=== PATIENT | male | born 1985 | race Caucasian/White ===

== ENCOUNTER 2020-08-01 06:46 | Emergency (ER) | payer SELFPAY ==
--- NOTE | ~2020-08-01 | CT_ITS ---
EXAMINATION: CT abdomen pelvis w con DATE: 08/01/2020 08:13 INDICATION: Right upper quadrant abdominal pain] TECHNIQUE: Computed tomography (CT) of the abdomen and pelvis was performed with 100 cc Omnipaque 350 intravenous contrast. Automated exposure control and iterative reconstruction technique were employe d. Exam dose: 429.18 mGy-cm total exam DLP. COMPARISON: None. FINDINGS: The lung bases are clear. Normal heart size. No pericardial or pleural effusion. The liver, gallbladder, bile ducts, spleen, pancreas, pancreatic duct and adrenal glands appear peter l. (Ultrasound is more sensitive for detection of gallbladder pathology.) No renal space occupying mass lesion or urinary tract calculus or hydroureteronephrosis. Normal caliber of the abdominal aorta. No intraperitoneal or retroperitoneal or pelvic mass lesion or adenopathy or ascites. No bowel obstruction, bowel wall thickening, pneumatosis or intraperitoneal free air. There is mild retrolisthesis at L4-5. Bilateral L5 pars interarticularis defects with grade 1 anterolisthesis at L5-S1. IMPRESSION: Bilateral L5 pars interarticularis defects with grade 1 anterolisthesis at L5-S1 Reviewed, dictated and finalized at [facility]. Reviewed, dictated and finalized at [facility]. [employer] PROJECT ENGINEER IMPRESSION: Bilateral L5 pars interarticularis defects with grade 1 anterolist hesis at L5-S1
[2020-08-01 06:50] VITALS: BP 125/79; PULSE 99; RESP 20; TEMP 36.3; O2SAT 100
[2020-08-01 07:20] LABS: Add Urine Microscopic? NO; Appearance Urine Clear (Clear); Bilirubin Urine Negative (Negative); Blood Urine Negative (Negative); Color Urine Colorless (Yellow); Glucose Urine UA Negative (Negative); Ketones Urine Negative (Negative); Leukocyte Esterase Ur Negative LEU/UL (Negative); Mucus Urine Rare /lpf; Nitrate Urine Negative (Negative); Protein Urine Negative (Negative); Specific Grav Ur 1.005 (1.001-1.035); Urobilinogen Urine Negative mg/dL (<2.0)
[2020-08-01 07:23] LABS: Basophils Absolute Auto 0.1 K/mm3 (0.0-0.1); Basophils Percent Auto 0.9 % (0.2-1.2); Eosinophils Absolute Auto 0.2 K/mm3 (0-0.3); Eosinophils Percent Auto 2.2 % (0-4.4); Hematocrit 42.3 % (42.0-52.0); Hemoglobin 14.5 g/dL (14.0-18.0); Immature Granulocyte Absolute 0.03 K/mm3 (0.00-0.031); Immature Granulocyte Percent A 0.3 % (0-0.5); Lymphocytes Absolute Auto 1.65 K/mm3 (0.9-3.2); Lymphocytes Percent Auto 17.8 % (18.3-44.2); Mean Corpuscular HGB Conc 34.3 g/dl (32-36); Mean Corpuscular Hemoglobin 28.9 pg (26-34); Mean Corpuscular Volume 84.3 fl (80-100); Mean Platelet Volume 10.2 fl (7.4-10.4); Monocytes Absolute Auto 0.5 K/mm3 (0.1-0.6); Monocytes Percent Auto 5.8 % (2.6-8.5); Neutrophils Absolute Auto 6.8 K/mm3 (1.3-6.7); Platelet Count Result 274 k/mm3 (150-375); Red Blood Count 5.02 M/mm3 (4.6-6.20); Red Cell Distribution Width 12.9 % (11.5-14.5); White Blood Count 9.3 K/mm3 (4.5-10.0)
[2020-08-01 07:42] LABS: Alanine Aminotransferase 17 U/L (4-50); Albumin Level 4.8 g/dL (3.5-5.1); Alkaline Phosphatase 51 U/L (38-126); Anion Gap 10 mmol/L (8-16); Aspartate Amino Transferase 33 U/L (17-59); Bilirubin,Total 0.5 mg/dL (0.2-1.3); Blood Urea Nitrogen 13 mg/dL (9-20); Calcium 9.7 mg/dL (8.4-10.2); Carbon Dioxide 26 mmol/L (22-30); Chloride 100 mmol/L (98-107); Estimated CRCL calculation 110 ml/min; Estimated Glomerular Filt Rate > 60; Glucose 119 mg/dL (75-110); Lipase 64 U/L (23-300); Potassium 3.8 mmol/L (3.4-5.0); Sodium 136 mmol/L (137-145)
[2020-08-01] MEDS: MORPHINE SULFATE (*CRX) 4 MG/ML INJ IV PUSH (07:49)
[2020-08-01] MEDS: ONDANSETRON INJ 4 MG/2 ML VIAL IV PUSH (07:49)
[2020-08-01] MEDS: SODIUM CHLORIDE 0.9% IV 1,000 ML 999 ML IV CONT (07:50)
--- NOTE | 2020-08-01 08:26 | ED.ABDPAIN ---
HPI - Abdominal Pain General Chief Complaint: Abdominal Pain Stated Complaint: R upper ABD pain Time Seen by Provider: 08/01/20 07:29 Source: patient Mode of arrival: ambulatory Limitations: no limitations History of Present Illness HPI narrative: 34 years old white male complaining of right abdomen mainly right upper quadrant pain for the last 1 to 2 years. More noticeable in the last 2 to 3 weeks. Patient denies any fever, chills, nausea, vomiting, triggering factors or relieving factors. Patient also denies any trouble urinating or defecating. In the last 4 days patient been feeling tingling numbness and burning sensation of the forearms and hands, of the lower legs and feet bilaterally. Patient reported history of chronic anxiety and distress. Patient denies alcohol intake or marijuana use. He chews Related Data Allergies Allergy/AdvReac Type Severity Reaction Status Date / Time No Known Allergies Allergy Mild Verified 08/01/20 06:53 Review of Systems Review of Systems: Narrative: CONSTITUTIONAL: Denies fever, chills, or sweats. EYES: Denies visual changes, redness, or discharge. ENT: Denies rhinorrhea, congestion, sore throat, or otalgia. CARDIOVASCULAR: Denies chest pain, palpitations, or edema. RESPIRATORY: Denies cough or dyspnea. GASTROINTESTINAL: Right upper quadrant pain GENITOURINARY: Denies dysuria or hematuria. SKIN: Denies rash or itching. MUSCULOSKELETAL: Denies back pain, joint pain, or myalgia. NEUROLOGIC: Denies headache, numbness, or weakness. PSYCHIATRIC: Denies anxiety or depression. [facility] Social History Social History Gender identity (if verbalized by the patient): Male Exam Narrative: Exam Narrative: General appearance: Well-developed, well-nourished Skin: Normal color Head: Normocephalic, nontraumatic Eyes: Clear conjunctiva ENT: Oropharynx normal, ears normal, nose normal Neck: Supple, nontender Chest and respiratory: Airway patent, no respiratory distress, no accessory muscle use Heart: Regular rate/rhythm Abdomen: Soft, mild right upper outer quadrant tenderness, no guarding or rebound, no organomegaly, quiet bowel sounds Vascular: Normal peripheral pulses, normal capillary refill. 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 A copy of the CAT scan report was given to the patient prior to discharge and was notified about the abnormality in the CAT scan which could be has something to do with his abdominal pain. Patient was advised to follow-up with Dr. Foley for further evaluation Date: 08/01/20 Time: 08:53 Vital Signs Vital signs: Vital Signs Temperature 36.3 C L 08/01/20 06:50 Pulse Rate 99 08/01/20 06:50 Respiratory Rate 20 08/01/20 06:50 Blood Pressure 125/79 08/01/20 06:50 Pulse Oximetry 100 08/01/20 06:50 Temperature 36.3 C L 08/01/20 06:50 Pulse Rate 99 08/01/20 06:50 Respiratory Rate 20 08/01/20 06:50 Blood Pressure 125/79 08/01/20 06:50 Pulse Oximetry 100 08/01/20 06:50 MDM - Abdominal Pain MDM Narrative Medical decision making narrative: Right upper quadrant pain for 1 to 2 years. Make the suspicious of anything serious is less likely. Tingling and numbness of the hands and feet is more likely related to stress and anxiety. Labs, CT abdomen and pelvis with IV contrast ordered. Further plan to follow Differential Diagnosis Differentia
[2020-08-01 09:17] VITALS: BP 128/88; PULSE 85; RESP 18; O2SAT 98
== END 2020-08-01 09:18 | disposition home or self-care (01) ==
PROVIDERS: Emergency Medicine; Emergency Provider Emergency Medicine
DX: R10.11 Right upper quadrant pain (principal); R20.2 Paresthesia of skin
CPT/HCPCS: 36415; 74177; 80053; 81003; 83690; 85025; 96361; 96374; 96375; 99284; J2270; J2405; J7030; Q9967

== ENCOUNTER 2020-12-03 10:52 | Emergency (ER) | payer MEDICAID, SELFPAY ==
--- NOTE | ~2020-12-03 | XR_ITS ---
EXAMINATION: XR chest 2V 12/03/2020 11:09 INDICATION: Chest pain PROCEDURE: 2 view chest COMPARISON: 05/15/2016 FINDINGS: The lungs are clear. The cardiomediastinal silhouette is within normal limits. There are no pleural effusions. There is no pneumothorax suspected. There is pectus carinatum. IMPRESSION: 1: NO ACUTE CARDIOPULMONARY DISEASE. Reviewed, dictated and finalized at [facility].
--- NOTE | ~2020-12-03 | US_ITS ---
EXAMINATION: US right upper quadrant EXAM DATE: 12/03/2020 12:32 INDICATION: Right upper quadrant pain. TECHNIQUE: Multiple grayscale and Doppler images of the abdomen right upper quadrant were obtained (b y a technologist who performed the scan) and subsequently reviewed. There is no prior study for julissa willingham. FINDINGS: The pancreatic head and body are normal in appearance. The pancreatic tail is not visualized. The l iver has normal echogenicity and contour. There are no focal liver lesions identified. There is no evidence of intrahepatic biliary duct dilation. Portal venous flow was seen in the hepatopedal, nor mal direction and has normal Doppler waveform. No right-sided hydronephrosis. Common bile duct measures 3-4 mm, which is normal. The gallbladder wall is normal in thickness, with expected amount of distention. No sonographic evidence of pericholecystic fluid. There is no cholel ithiases. Technologist performing exam reports patient did not demonstrate sonographic Barnhart's sign. Please note that this sign is less reliable in patients who have received pain medication. IMPRESSION: 1. Unremarkable abdominal ultrasound exam. Reviewed, dictated and finalized at [facility].
--- NOTE | 2020-12-03 10:54 | ECG_ITS ---
Measurements Intervals [place] Rate: 118 P: 76 [place]: 126 QRS: 88 QRSD: 86 T: 68 QT: 340 QTc: 477 Interpretive Statements SINUS TACHYCARDIA MINIMAL Q WAVES- INFERIOR LEADS NONSPECIFIC ST & T-WAVE ABNORMALITY- DIFFUSSE LEADS ABNORMAL ECG Electronically Signed On 12-03-2020 12:09:05 CDT by Nikita Ahmadi D.O.
[2020-12-03 11:00] VITALS: BP 147/86; PULSE 115; RESP 18; TEMP 36.4; O2SAT 100
[2020-12-03 11:22] LABS: Basophils Absolute Auto 0.1 K/mm3 (0.0-0.1); Basophils Percent Auto 0.7 % (0.2-1.2); Eosinophils Absolute Auto 0.1 K/mm3 (0-0.3); Eosinophils Percent Auto 0.8 % (0-4.4); Hematocrit 46.1 % (42.0-52.0); Hemoglobin 15.8 g/dL (14.0-18.0); Immature Granulocyte Absolute 0.01 K/mm3 (0.00-0.031); Immature Granulocyte Percent A 0.1 % (0-0.5); Lymphocytes Absolute Auto 1.89 K/mm3 (0.9-3.2); Lymphocytes Percent Auto 26.2 % (18.3-44.2); Mean Corpuscular HGB Conc 34.3 g/dl (32-36); Mean Corpuscular Volume 84.7 fl (80-100); Mean Platelet Volume 10.3 fl (7.4-10.4); Monocytes Absolute Auto 0.4 K/mm3 (0.1-0.6); Monocytes Percent Auto 5.5 % (2.6-8.5); Neutrophils Absolute Auto 4.8 K/mm3 (1.3-6.7); Neutrophils Percent Auto 66.7 % (45.5-73.1); Platelet Count Result 269 k/mm3 (150-375); Red Blood Count 5.44 M/mm3 (4.6-6.20); Red Cell Distribution Width 13.3 % (11.5-14.5); White Blood Count 7.2 K/mm3 (4.5-10.0)
[2020-12-03 11:34] LABS: Prothrombin Time 13.3 Seconds (11.1-14.7)
[2020-12-03 11:35] LABS: Anion Gap 16 mmol/L (8-16); Blood Urea Nitrogen 13 mg/dL (9-20); Calcium 10.8 mg/dL (8.4-10.2); Carbon Dioxide 24 mmol/L (22-30); Chloride 102 mmol/L (98-107); Estimated CRCL calculation 102 ml/min; Estimated Glomerular Filt Rate > 60; Glucose 130 mg/dL (75-110); Sodium 142 mmol/L (137-145)
[2020-12-03 11:46] LABS: Troponin I < 0.012 ng/mL (0.000-0.034)
[2020-12-03 11:59] LABS: Partial Thromboplastin Time < 20.0 SECONDS (22.3-36.8)
--- NOTE | 2020-12-03 12:00 | PC.NURSE ---
Wakes up shaking, sweating for about 30 min in the am, intermittent vomiting, weight loss of 16lbs over past 5-6 months. Was seen for RUQ pain feels like a balloon and palpitations 4 months ago, now c/o chest palpitations and heart rate skyrockets (reports he takes his HR, ~120's) (denies recent exertion, states these episodes happen when lying down) Denies seeing a PCP I don't have insurance . Also states I think I have anxiety real bad, but not diagnosed States he is on daily methadone and normally is constipated, reports there is food in my stools, and they are light in color
[2020-12-03 12:08] VITALS: BP 132/92; PULSE 112; RESP 15; O2SAT 100
[2020-12-03] MEDS: SODIUM CHLORIDE 0.9% IV 1,000 ML 999 ML IV CONT (12:40)
[2020-12-03 13:12] LABS: Alanine Aminotransferase 12 U/L (4-50); Albumin Level 4.9 g/dL (3.5-5.1); Alkaline Phosphatase 57 U/L (38-126); Aspartate Amino Transferase 36 U/L (17-59); Bilirubin,Total 0.6 mg/dL (0.2-1.3); Lipase 66 U/L (23-300)
[2020-12-03 13:53] LABS: Thyroid Stimulating Hormone Reflex 0.505 uIU/mL (0.465-4.68)
--- NOTE | 2020-12-03 14:27 | ED.CHESTPAIN ---
HPI - Chest Pain General Chief Complaint: Chest Pain Stated Complaint: Chest Pain Heart Racing Time Seen by Provider: 12/03/20 11:59 History of Present Illness HPI narrative: Patient is a 35-year-old male who presents ER with palpitations. Reports its occurred 4 times in the last couple months. 2 nights ago it was last time it occurred and lasted for approximately 30 to 40 minutes. No chest pain or chest pressure. He also reports he wakes up each day with sweats but no chills. No documented fevers. No sinus congestion/sore throat, he does report epigastric pain for which she has been evaluated previously as well. Normal gait vacation with eating or drinking. No radiation. Patient normal bowel and urinary habits. Patient does not feel this is withdrawal related to methadone as he takes his dose each day. He also reports that he is working on getting established with a primary care physician as he is working his way towards getting insurance. Patient also reports when his heart is racing its around 110 to 120 bpm. Related Data Allergies Allergy/AdvReac Type Severity Reaction Status Date / Time No Known Allergies Allergy Mild Verified 08/01/20 06:53 Review of Systems Review of Systems: All systems reviewed & are unremarkable except as noted in HPI and below Constitutional: Constitutional: Denies chills and Denies fever(s) Comments: Night sweats ENT: Denies nasal congestion and Denies sore throat Cardiovascular: Cardiovascular: Denies chest pain, Reports rapid heart rate and Denies radiating jaw, neck or arm pain Respiratory: Respiratory: Denies cough and Denies dyspnea Gastrointestinal: Gastrointestinal: Reports abdominal pain, Denies constipation, Denies diarrhea, Reports nausea and Denies vomiting Genitourinary: Genitourinary: Denies hematuria, Denies dysuria and Denies urinary frequency PMFSH Social History Social History Gender identity (if verbalized by the patient): Male Exam Narrative: Exam Narrative: GENERAL: Well-appearing, well-nourished, and in no acute distress. HEAD: Normocephalic, atraumatic. ENT: Mucous membranes moist. CHEST: Clear to auscultation. No respiratory distress. HEART: Regular rate and rhythm. Normal peripheral pulses. ABDOMEN: Soft, mild epigastric tenderness w/o guarding, nondistended. EXTREMITIES: Normal range of motion. No edema. SKIN: Warm, dry, no rash. NEURO: Alert and oriented x3. PSYCH: Normal mood and affect. Course Course Emergency Course: Unremarkable evaluation. Patient seems to be relatively anxious. Will start on a PPI for epigastric discomfort and Vistaril for anxiety. Recommend that he needs to establish care with PCP. Heart rate improved while in the ER. Vital Signs Vital signs: Vital Signs Temperature 97.6 F 12/03/20 11:00 Pulse Rate 115 H 12/03/20 11:00 Respiratory Rate 18 12/03/20 11:00 Blood Pressure 147/86 H 12/03/20 11:00 Pulse Oximetry 100 12/03/20 11:00 Temperature 97.6 F 12/03/20 11:00 Pulse Rate 112 H 12/03/20 12:08 Respiratory Rate 15 12/03/20 12:08 Blood Pressure 132/92 H 12/03/20 12:08 Pulse Oximetry 100 12/03/20 12:08 MDM - Chest Pain Lab Data Result diagrams: 12/03/20 11:16 12/03/20 11:16 Labs: Lab Results 12/03/20 12/03/20 12/03/20 Range/Units 11:15 11:16 11:16 WBC 7.2 (4.5-10.0) K/mm3 RBC 5.44 (4.6-6.20) M/mm3 Hgb 15.8 (14.0-18.0) g/dL Hct 46.1 (42.0-52.0) % MCV 84.7 (80-100) fl MCH 29.0 (26-34) pg MCHC 34.3 (32-36) g/dl RDW 13.3 (11.5-14.5) % Plt Count 269 (150-375) k/mm3 MPV 10.3 (7.4-10.4) fl Immature Gran % (Auto) 0.1 (0-0.5) % Neut % (Auto) 66.7 (45.5-73.1) % Lymph % (Auto) 26.2 (18.3-44.2) % [place] % (Auto) 5.5 (2.6-8.5) % Eos % (Auto) 0.8 (0-4.4) % Baso % (Auto) 0.7 (0.2-1.2) % Lymph # (Auto) 1.89 (0.9-3.2) K/mm3 [place] # (A
[2020-12-03 14:32] VITALS: BP 132/92; PULSE 72; RESP 18; O2SAT 97
== END 2020-12-03 14:44 | disposition home or self-care (01) ==
PROVIDERS: Emergency Provider Emergency Medicine
DX: F41.9 Anxiety disorder, unspecified (principal); R10.13 Epigastric pain; R00.2 Palpitations
CPT/HCPCS: 36415; 71046; 76705; 80048; 80076; 83690; 84443; 84484; 85025; 85610; 85730; 93005; 96360; 99284; J7030

== ENCOUNTER 2020-12-11 13:34 | Emergency (ER) | payer MEDICAID, SELFPAY ==
[2020-12-11] VITALS (21 sets, daily range): BP systolic 128–142; BP diastolic 76–91; PULSE 63–106; RESP 9–16; TEMP 36.8; O2SAT 94–100
--- NOTE | ~2020-12-11 | XR_ITS ---
EXAMINATION: XR chest 2V EXAM DATE: 12/11/2020 12:39 INDICATION: Chest pain, numbness down both arms. TECHNIQUE: Frontal and lateral projections of the chest obtained and reviewed. Comparison is made to prior examination from 12/03/2020. FINDINGS: Mild hyperinflation. The lungs are clear. There are no pleural effusions. The cardiomedi astinal silhouette is within normal limits. There is no pneumothorax suspected. The bones and soft tissues are unremarkable. IMPRESSION: No acute cardiopulmonary findings. Reviewed, dictated and finalized at [facility].
--- NOTE | 2020-12-11 12:13 | ECG_ITS ---
Measurements Intervals [place] Rate: 99 P: 44 NM: 151 QRS: 38 QRSD: 81 T: 45 QT: 285 QTc: 367 Interpretive Statements SINUS RHYTHM EARLY PRECORDIAL R/S TRANSITION NONSPECIFIC T-WAVE ABNORMALITY- ANTEROLAT/INF LEADS BASELINE ARTIFACT- II, III, AVR, AVF, V4-V6 BORDERLINE ECG Electronically Signed On 12-11-2020 15:12:04 CDT by Nikita Ahmadi D.O.
--- NOTE | 2020-12-11 12:53 | ED.GENADULT ---
HPI - General Adult General Chief complaint: Chest Pain Stated complaint: ANXIETY Source: patient History of Present Illness HPI narrative: Patient is a 35 y/o male complaining of midsternal chest pain starting 1 1/2 hours ago. He describes his pain as pressure and squeezing sensation. He rates it as 5/10. There is no pain radiation. He states that it lasted 20 to minutes. He also felt heart palpitation and his hands were tingling and locking up. Related Data Allergies Allergy/AdvReac Type Severity Reaction Status Date / Time No Known Allergies Allergy Mild Verified 08/01/20 06:53 Review of Systems Constitutional: Constitutional: Denies chills, Denies fever(s), Denies headache(s) and Denies weakness Eyes: Eyes: Denies blurry vision ENT: Denies headache(s) and Denies neck pain Cardiovascular: Cardiovascular: Reports chest pain, Reports rapid heart rate and Denies dyspnea Respiratory: Respiratory: Denies cough and Denies dyspnea Gastrointestinal: Gastrointestinal: Denies abdominal pain, Denies diarrhea, Denies nausea and Denies vomiting Genitourinary: Genitourinary: Denies hematuria and Denies dysuria Musculoskeletal: Musculoskeletal: Denies back pain and Denies neck pain Neurologic: Denies headache(s), Reports tingling, Denies weakness and Reports other (hands stuck) [facility] Social History Social History Gender identity (if verbalized by the patient): Male Exam Const: General: no acute distress and well developed Orientation/consciousness: oriented to person, oriented to place, oriented to time and patient oriented x3 HENMT: Head: normocephalic Ears: external ears normal General nose exam: Normal external nose present Eyes: General: appearance normal, both eyes and all related structures Conjunctivae: conjunctivae normal Neck: Neck: normal visual inspection and full ROM Chest: Chest palpation & inspection: normal inspection of the chest and no tenderness Resp: Effort & Inspection: normal respiratory effort Auscultation: clear to auscultation bilaterally Cardio: Rate: regular rate Rhythm: regular rhythm GI: GI Palp: No abdominal tenderness and Yes Soft to palpation Skin: General skin exam: normal color and turgor normal Neuro: General: oriented to person, oriented to place, oriented to time and patient oriented x3 Cognition (Neuro): normal cognition Extrem: General: normal to inspection, full ROM and no pedal edema Psych: Appearance: grossly normal Mental Status: mental status grossly normal Affect: normal affect Course Vital Signs Vital signs: Vital Signs Pulse Rate 98 12/11/20 12:08 Respiratory Rate 12 12/11/20 12:08 Blood Pressure 133/83 12/11/20 12:08 Pulse Oximetry 99 12/11/20 12:08 Pulse Rate 81 12/11/20 18:00 Respiratory Rate 16 12/11/20 18:00 Blood Pressure 136/76 12/11/20 17:16 Pulse Oximetry 98 12/11/20 18:00 Medical Decision Making Vital Signs Vital Signs: Vital Signs Pulse Rate 98 12/11/20 12:08 Respiratory Rate 12 12/11/20 12:08 Blood Pressure 133/83 12/11/20 12:08 Pulse Oximetry 99 12/11/20 12:08 Pulse Rate 81 12/11/20 18:00 Respiratory Rate 16 12/11/20 18:00 Blood Pressure 136/76 12/11/20 17:16 Pulse Oximetry 98 12/11/20 18:00 Lab Data Result diagrams: 12/11/20 14:22 12/11/20 14:22 Labs: Lab Results 12/11/20 12/11/20 12/11/20 Range/Units 14:22 14:22 14:22 WBC 10.0 (4.5-10.0) K/mm3 RBC 4.75 (4.6-6.20) M/mm3 Hgb 13.9 L (14.0-18.0) g/dL Hct 41.0 L (42.0-52.0) % MCV 86.3 (80-100) fl MCH 29.3 (26-34) pg MCHC 33.9 (32-36) g/dl RDW 13.3 (11.5-14.5) % Plt Count 252 (150-375) k/mm3 MPV 10.3 (7.4-10.4) fl Immature Gran % (Auto) 0.3 (0-0.5) % Neut % (Auto) 74.8 H (45.5-73.1) % Lymph % (Auto) 16.1 L (18.3-44.2) % [place] % (Auto) 8.1 (2.6-8.5) % Eos
[2020-12-11 14:30] LABS: Basophils Absolute Auto 0.1 K/mm3 (0.0-0.1); Basophils Percent Auto 0.5 % (0.2-1.2); Eosinophils Percent Auto 0.2 % (0-4.4); Hemoglobin 13.9 g/dL (14.0-18.0); Immature Granulocyte Absolute 0.03 K/mm3 (0.00-0.031); Immature Granulocyte Percent A 0.3 % (0-0.5); Lymphocytes Absolute Auto 1.61 K/mm3 (0.9-3.2); Lymphocytes Percent Auto 16.1 % (18.3-44.2); Mean Corpuscular HGB Conc 33.9 g/dl (32-36); Mean Corpuscular Hemoglobin 29.3 pg (26-34); Mean Corpuscular Volume 86.3 fl (80-100); Mean Platelet Volume 10.3 fl (7.4-10.4); Monocytes Absolute Auto 0.8 K/mm3 (0.1-0.6); Monocytes Percent Auto 8.1 % (2.6-8.5); Neutrophils Absolute Auto 7.5 K/mm3 (1.3-6.7); Neutrophils Percent Auto 74.8 % (45.5-73.1); Platelet Count Result 252 k/mm3 (150-375); Red Blood Count 4.75 M/mm3 (4.6-6.20); Red Cell Distribution Width 13.3 % (11.5-14.5)
[2020-12-11 14:40] LABS: Potassium 4.1 mmol/L (3.4-5.0)
[2020-12-11 14:41] LABS: Anion Gap 12 mmol/L (8-16); Blood Urea Nitrogen 11 mg/dL (9-20); Calcium 9.9 mg/dL (8.4-10.2); Carbon Dioxide 26 mmol/L (22-30); Chloride 104 mmol/L (98-107); Estimated CRCL calculation 112 ml/min; Estimated Glomerular Filt Rate > 60; Glucose 97 mg/dL (75-110); Sodium 142 mmol/L (137-145)
[2020-12-11 14:52] LABS: Troponin I < 0.012 ng/mL (0.000-0.034)
[2020-12-11 14:58] LABS: D Dimer 0.27 ug/mL (<0.48)
--- NOTE | 2020-12-11 15:45 | PC.NURSE ---
Pt declines repeat troponin follow education provided.
--- NOTE | 2020-12-11 17:38 | PC.NURSE ---
Patient difficult stick for blood draw. Attempting to use ultrasound for blood draw.
[2020-12-11 18:38] LABS: Troponin I < 0.012 ng/mL (0.000-0.034)
== END 2020-12-11 19:16 | disposition home or self-care (01) ==
PROVIDERS: Emergency Provider Emergency Medicine
DX: F41.9 Anxiety disorder, unspecified (principal); R07.2 Precordial pain; R94.31 Abnormal electrocardiogram [ECG] [EKG]
CPT/HCPCS: 36415; 71046; 80048; 84484; 85025; 85380; 93005; 99284